=== PATIENT | female | born 1955 | race Caucasian/White ===

== ENCOUNTER 2020-01-27 18:59 | Inpatient (IN) | payer MEDICAID ==
[~2020-01-27] VITALS: Ht 160 cm; Wt 74.4 kg
[2020-01-27] MEDS ORDERED: ONDANSETRON 2MG/ML, 2ML ONE (19:49)
[2020-01-27] MEDS ORDERED: MORPHINE SULFATE 4 MG/ML, 1ML ONE (19:49)
--- NOTE | 2020-01-27 19:55 | NUR ---
THIS IS A 64 YO F W/ C/O RT PAIN BEHIND THE KNEE AND SOB THAT STARTED TODAY. PT DENIES CP/DIZZINESS/N/V. PT RESP EVEN AND UNLABORED. TACHYCARDIC. OTHER VS WDL. NADN. PT RESTING ON [employer]ix[place]NEY W/ CALL LIGHT IN REACH. CONNECTED TO ALL MONITORING. PIV STARTED AND PT MEDICATED PER EMAR. WILL CONTINUE TO MONITOR.
--- NOTE | 2020-01-27 19:58 | NUR ---
PT DESAT TO 85% AFTER [employer]. PLACED ON 4L NC. NOW 93%.
[2020-01-27 20:00] LABS: MEAN CORPUSCULAR HEMOGLOBIN 31.1 pg (27.0-34.8); MEAN CORPUSCULAR HGB CONC 33.9 g/dL (32.4-35.8); MEAN CORPUSCULAR VOLUME 91.6 fL (80-100); MEAN PLATELET VOLUME 9.5 fL (7.4-10.4); PLATELET COUNT 219 x10^3/uL (130-400); RED BLOOD COUNT 5.13 x10^6/uL (3.82-5.3)
[2020-01-27] MEDS ORDERED: MORPHINE SULFATE 4 MG/ML, 1ML IVPush PRN (20:00)
[2020-01-27] MEDS ORDERED: ONDANSETRON 2MG/ML, 2ML IVPush ONE (20:00)
[2020-01-27] MEDS ORDERED: SODIUM CHLORIDE FLUSH 10ML SYR IVF ONE (20:00)
[2020-01-27 20:09] LABS: ALANINE AMINOTRANSFERASE 20 U/L (12-78); ALBUMIN 3.8 g/dL (3.4-5.0); ANION GAP 8 mmol/L (5-15); CALCIUM 9.5 mg/dL (8.5-10.1); CHLORIDE 106 mmol/L (98-107); CREATININE 0.78 mg/dL (0.55-1.02)
[2020-01-27 20:13] LABS: ALKALINE PHOSPHATASE 95 U/L (45-117); BILIRUBIN,TOTAL 0.7 mg/dL (0.2-1.0); TOTAL PROTEIN 7.7 g/dL (6.4-8.2); TROPONIN I < 0.015 ng/mL (0.000-0.045)
[2020-01-27 20:16] LABS: BASOPHILS # (AUTO) 0.02 x10^3/uL (0-0.1); BASOPHILS % (AUTO) 0 % (0-1); EOSINOPHILS # (AUTO) 0.15 x10^3/uL (0-0.4); EOSINOPHILS % (AUTO) 1 % (1-7); LYMPHOCYTES # (AUTO) 1.42 x10^3/uL (1-3.4); LYMPHOCYTES % (AUTO) 8 % (22-44); MD SCAN; MONOCYTES # (AUTO) 1.01 x10^3/uL (0.2-0.8); MONOCYTES % (AUTO) 5 % (2-9); NEUTROPHILS # (AUTO) 16.41 x10^3/uL (1.8-6.8); NEUTROPHILS % (AUTO) 86 % (42-75)
--- NOTE | 2020-01-27 20:26 | NUR ---
US IN ROOM.
--- NOTE | 2020-01-27 20:41 | NUR ---
PT TO CT.
[2020-01-27] MEDS ORDERED: OMNIPAQUE 350 MG/ML, 100ML BOTTLE ONE (21:01)
--- NOTE | 2020-01-27 21:05 | NUR ---
PT AMBULATED TO THE BR W/ A STEADY GAIT.
[2020-01-27] MEDS ORDERED: CEFTRIAXONE PMX 1GM/50ML 50 ML IVPB ONE (21:30)
[2020-01-27] MEDS ORDERED: DOXYCYCLINE 100 MG in DEXTROSE 5% 250 ML IV ONE (21:30)
[2020-01-27] MEDS ORDERED: SODIUM CHLORIDE 0.9% 1,000ML IVBOLUS ONE (21:30)
[2020-01-27 21:34] LABS: CULTURE INDICATED? YES; MICROSCOPIC INDICATED
--- NOTE | 2020-01-27 21:42 | NUR ---
IN ROOM TO UPDATE PT ON POC FOR ADMIT.
[2020-01-27] MEDS ORDERED: CEFTRIAXONE PMX 1GM/50ML 50 ML ONE (22:13)
[2020-01-27] MEDS ORDERED: HEPARIN 25,000 UNITS/250ML PMX 250 ML ONE (22:13)
[2020-01-27] MEDS ORDERED: HEPARIN 5,000 UNITS/ML, 1ML ONE (22:13)
[2020-01-27] MEDS: HEPARIN 5,000 UNITS/ML, 1ML IV ONE ×2 (22:16→22:31)
[2020-01-27] MEDS: HEPARIN 25,000 UNITS/250ML PMX 250 ML IV PRN ×2 (22:17→22:31)
[2020-01-27] MEDS: SODIUM CHLORIDE 0.9% 1,000 ML IV SCH ×2 (22:19→22:35)
[2020-01-27] MEDS ORDERED: ONDANSETRON 2MG/ML, 2ML IVPush PRN (22:30)
[2020-01-27] MEDS: NICOTINE 21 MG/24 HR PATCH.TD24 TD SCH (22:30)
[2020-01-27] MEDS ORDERED: LABETALOL 5MG/ML, 20ML IVPush PRN (22:30)
[2020-01-27] MEDS: CEFTRIAXONE PMX 1GM/50ML 50 ML IV SCH (22:30)
[2020-01-27] MEDS ORDERED: ZOLPIDEM 5MG TABLET PO PRN (22:30)
[2020-01-27] MEDS ORDERED: hydrALAzine 20 MG/ML, 1ML IVPush PRN (22:30)
[2020-01-27] MEDS ORDERED: GUAIFENESIN/COD200MG-20MG/10ML LIQUID PO PRN (22:30)
--- NOTE | 2020-01-27 22:30 | NUR ---
2ND PIV STARTED, CULTURES DRAWN, ABX STARTED, HEPARIN STARTED.
--- NOTE | 2020-01-27 22:49 | NUR ---
REPORT GIVEN TO MICHOACANO ESCAMILLA. PT IS READY FOR TRANSPORT.
[2020-01-27 23:17] LABS: FREE T4 (FREE THYROXINE) 0.97 ng/dL (0.76-1.46); TROPONIN I < 0.015 ng/mL (0.000-0.045)
[2020-01-27 23:20] VITALS: BP 132/82
[2020-01-27] MEDS: morphine SULFATE 10 MG/ML, 1ML IVPush PRN (23:57)
[2020-01-28 00:01] VITALS: BP 134/83
[2020-01-28 01:09] VITALS: BP 123/80
[2020-01-28] MEDS: morphine SULFATE 10 MG/ML, 1ML IVPush PRN ×4 (03:46→22:08)
[2020-01-28 05:12] LABS: MEAN CORPUSCULAR HEMOGLOBIN 31.5 pg (27.0-34.8); MEAN CORPUSCULAR HGB CONC 33.8 g/dL (32.4-35.8); MEAN CORPUSCULAR VOLUME 93.2 fL (80-100); PLATELET COUNT 186 x10^3/uL (130-400); RED BLOOD COUNT 4.58 x10^6/uL (3.82-5.3); RED CELL DISTRIBUTION WIDTH 13.7 % (9.6-15.2)
[2020-01-28 05:24] LABS: ANION GAP 8 mmol/L (5-15); CALCIUM 8.4 mg/dL (8.5-10.1); CHLORIDE 106 mmol/L (98-107)
[2020-01-28 05:31] LABS: CREATININE 0.69 mg/dL (0.55-1.02); TROPONIN I < 0.015 ng/mL (0.000-0.045)
[2020-01-28] MEDS: HEPARIN 5,000 UNITS/ML, 1ML IV PRN ×3 (05:43→20:04)
[2020-01-28 06:30] LABS: BASOPHILS # (AUTO) 0.05 x10^3/uL (0-0.1); BASOPHILS % (AUTO) 0 % (0-1); EOSINOPHILS # (AUTO) 0.01 x10^3/uL (0-0.4); EOSINOPHILS % (AUTO) 0 % (1-7); LYMPHOCYTES # (AUTO) 1.97 x10^3/uL (1-3.4); LYMPHOCYTES % (AUTO) 9 % (22-44); MD SCAN; MONOCYTES # (AUTO) 1.55 x10^3/uL (0.2-0.8); MONOCYTES % (AUTO) 7 % (2-9); NEUTROPHILS # (AUTO) 17.38 x10^3/uL (1.8-6.8); NEUTROPHILS % (AUTO) 83 % (42-75)
[2020-01-28] MEDS: SODIUM CHLORIDE 0.9% 1,000 ML IV SCH ×3 (06:36→22:19)
[2020-01-28 07:00] VITALS: BP 116/75
[2020-01-28] MEDS ORDERED: PANTOPRAZOLE 40 MG IV IVPush SCH (07:30)
[2020-01-28] MEDS: DOXYCYCLINE 100MG TABLET PO SCH ×2 (08:56→20:04)
[2020-01-28] MEDS: CEFTRIAXONE PMX 1GM/50ML 50 ML IV SCH ×2 (12:40→22:08)
[2020-01-28 14:30] VITALS: BP 122/81
[2020-01-28 20:02] VITALS: BP 114/72
[2020-01-28] MEDS: NICOTINE 21 MG/24 HR PATCH.TD24 TD SCH (22:08)
[2020-01-29] MEDS: HEPARIN 25,000 UNITS/250ML PMX 250 ML IV PRN (01:15)
[2020-01-29 01:21] VITALS: BP 111/67
[2020-01-29 02:03] LABS: MEAN CORPUSCULAR HEMOGLOBIN 31.1 pg (27.0-34.8); MEAN CORPUSCULAR HGB CONC 33.4 g/dL (32.4-35.8); MEAN CORPUSCULAR VOLUME 93.2 fL (80-100); MEAN PLATELET VOLUME 9.2 fL (7.4-10.4); PLATELET COUNT 165 x10^3/uL (130-400); RED BLOOD COUNT 4.05 x10^6/uL (3.82-5.3); RED CELL DISTRIBUTION WIDTH 13.9 % (9.6-15.2)
[2020-01-29 02:13] LABS: ANION GAP 6 mmol/L (5-15); CALCIUM 8.5 mg/dL (8.5-10.1); CHLORIDE 106 mmol/L (98-107); CREATININE 0.52 mg/dL (0.55-1.02)
[2020-01-29 02:17] LABS: BASOPHILS # (AUTO) 0.01 x10^3/uL (0-0.1); BASOPHILS % (AUTO) 0 % (0-1); EOSINOPHILS # (AUTO) 0.02 x10^3/uL (0-0.4); EOSINOPHILS % (AUTO) 0 % (1-7); LYMPHOCYTES # (AUTO) 1.93 x10^3/uL (1-3.4); LYMPHOCYTES % (AUTO) 11 % (22-44); MD SCAN; MONOCYTES # (AUTO) 1.13 x10^3/uL (0.2-0.8); MONOCYTES % (AUTO) 6 % (2-9); NEUTROPHILS % (AUTO) 83 % (42-75)
[2020-01-29] MEDS: HEPARIN 5,000 UNITS/ML, 1ML IV PRN ×2 (02:44→10:51)
[2020-01-29] MEDS: PANTOPRAZOLE 40MG TABLET PO SCH (05:41)
[2020-01-29 06:50] VITALS: BP 116/68
[2020-01-29] MEDS: SODIUM CHLORIDE 0.9% 1,000 ML IV SCH (07:22)
[2020-01-29] MEDS: DOXYCYCLINE 100MG TABLET PO SCH ×2 (09:24→20:31)
[2020-01-29] MEDS: CEFTRIAXONE PMX 1GM/50ML 50 ML IV SCH ×2 (10:36→22:37)
[2020-01-29 13:29] VITALS: BP 112/67
[2020-01-29] MEDS ORDERED: HEPARIN 5,000 UNITS/ML, 1ML IV PRN (16:00)
[2020-01-29] MEDS ORDERED: HEPARIN 25,000 UNITS/250ML PMX 250 ML IV PRN (16:00)
[2020-01-29 20:09] VITALS: BP 115/74
[2020-01-29] MEDS: APIXABAN 5 MG TABLET PO SCH (20:31)
[2020-01-29] MEDS: NICOTINE 21 MG/24 HR PATCH.TD24 TD SCH (22:03)
[2020-01-30 00:47] VITALS: BP 123/75
[2020-01-30 04:59] LABS: BASOPHILS # (AUTO) 0.08 x10^3/uL (0-0.1); BASOPHILS % (AUTO) 1 % (0-1); EOSINOPHILS # (AUTO) 0.06 x10^3/uL (0-0.4); EOSINOPHILS % (AUTO) 1 % (1-7); LYMPHOCYTES # (AUTO) 1.28 x10^3/uL (1-3.4); LYMPHOCYTES % (AUTO) 12 % (22-44); MD NO; MEAN CORPUSCULAR HEMOGLOBIN 31.3 pg (27.0-34.8); MEAN CORPUSCULAR HGB CONC 33.9 g/dL (32.4-35.8); MEAN CORPUSCULAR VOLUME 92.1 fL (80-100); MEAN PLATELET VOLUME 9.1 fL (7.4-10.4); MONOCYTES # (AUTO) 0.65 x10^3/uL (0.2-0.8); MONOCYTES % (AUTO) 6 % (2-9); NEUTROPHILS # (AUTO) 8.24 x10^3/uL (1.8-6.8); NEUTROPHILS % (AUTO) 80 % (42-75); PLATELET COUNT 187 x10^3/uL (130-400); RED CELL DISTRIBUTION WIDTH 13.8 % (9.6-15.2)
[2020-01-30 05:08] LABS: CALCIUM 8.8 mg/dL (8.5-10.1); CHLORIDE 107 mmol/L (98-107)
[2020-01-30 05:12] LABS: ANION GAP 8 mmol/L (5-15); CREATININE 0.35 mg/dL (0.55-1.02)
[2020-01-30] MEDS: PANTOPRAZOLE 40MG TABLET PO SCH (05:54)
[2020-01-30 07:38] VITALS: BP 134/84
[2020-01-30] MEDS: DOXYCYCLINE 100MG TABLET PO SCH ×2 (08:39→20:53)
[2020-01-30] MEDS: APIXABAN 5 MG TABLET PO SCH ×2 (08:39→20:51)
[2020-01-30] MEDS: CEFTRIAXONE PMX 1GM/50ML 50 ML IV SCH ×2 (10:39→22:16)
[2020-01-30 13:28] VITALS: BP 124/79
[2020-01-30 20:19] VITALS: BP 109/73
[2020-01-30] MEDS: NICOTINE 21 MG/24 HR PATCH.TD24 TD SCH (22:16)
[2020-01-31 01:20] VITALS: BP 112/74
[2020-01-31] MEDS: PANTOPRAZOLE 40MG TABLET PO SCH (05:01)
[2020-01-31 06:02] LABS: BASOPHILS # (AUTO) 0.03 x10^3/uL (0-0.1); BASOPHILS % (AUTO) 0 % (0-1); EOSINOPHILS # (AUTO) 0.17 x10^3/uL (0-0.4); EOSINOPHILS % (AUTO) 2 % (1-7); LYMPHOCYTES # (AUTO) 1.37 x10^3/uL (1-3.4); LYMPHOCYTES % (AUTO) 16 % (22-44); MD NO; MEAN CORPUSCULAR HEMOGLOBIN 31.1 pg (27.0-34.8); MEAN CORPUSCULAR VOLUME 91.5 fL (80-100); MEAN PLATELET VOLUME 8.5 fL (7.4-10.4); MONOCYTES # (AUTO) 0.65 x10^3/uL (0.2-0.8); MONOCYTES % (AUTO) 7 % (2-9); NEUTROPHILS # (AUTO) 6.64 x10^3/uL (1.8-6.8); NEUTROPHILS % (AUTO) 75 % (42-75); PLATELET COUNT 240 x10^3/uL (130-400); RED BLOOD COUNT 4.06 x10^6/uL (3.82-5.3); RED CELL DISTRIBUTION WIDTH 13.5 % (9.6-15.2)
[2020-01-31 06:12] LABS: ANION GAP 6 mmol/L (5-15); CALCIUM 8.9 mg/dL (8.5-10.1); CHLORIDE 106 mmol/L (98-107); CREATININE 0.52 mg/dL (0.55-1.02)
[2020-01-31 07:05] VITALS: BP 112/75
[2020-01-31] MEDS: APIXABAN 5 MG TABLET PO SCH (08:16)
[2020-01-31] MEDS: DOXYCYCLINE 100MG TABLET PO SCH (08:16)
[2020-01-31] MEDS: CEFTRIAXONE PMX 1GM/50ML 50 ML IV SCH (10:48)
[2020-01-31 13:01] VITALS: BP 110/75
[2020-01-31] MEDS ORDERED: CEFD300C37 PO (13:37)
[2020-01-31] MEDS ORDERED: APIX5TAB PO (13:37)
== END 2020-01-31 15:00 | disposition home or self-care (01) | DRG 299 ==
LOC: ED 22:16 → EDIP 22:21 → 5SO 23:07
PROVIDERS: ADMIT Hospitalist; ATTEND Hospitalist
DX: I82.431 Acute embolism and thrombosis of right popliteal vein (principal); I26.99 Other pulmonary embolism without acute cor pulmonale; J18.9 Pneumonia, unspecified organism; E87.1 Hypo-osmolality and hyponatremia; N39.0 Urinary tract infection, site not specified; F10.10 Alcohol abuse, uncomplicated; Y90.9 Presence of alcohol in blood, level not specified; F17.210 Nicotine dependence, cigarettes, uncomplicated; I11.9 Hypertensive heart disease without heart failure; J43.9 Emphysema, unspecified; K44.9 Diaphragmatic hernia without obstruction or gangrene; Z83.2 Family history of diseases of the blood and blood-forming organs and certain disorders involving the immune mechanism; Z90.710 Acquired absence of both cervix and uterus; I82.451 Acute embolism and thrombosis of right peroneal vein; I82.441 Acute embolism and thrombosis of right tibial vein
CPT/HCPCS: 36415; 71045; 71275; 80048; 80053; 81001; 83036; 83605; 83880; 84145; 84439; 84443; 84484; 85025; 85520; 87040; 87086; 93005; 93306; 96365; 96375; G0378; J0696; J1644; J2405; J7060; Q9967; C9113; J2270; J7030

== ENCOUNTER → 2021-05-22 | Outpatient (CLI) | payer MEDICAID ==
[~2021-05-22] MED LIST: APIX5TAB PO; CEFD300C37 PO
== END | disposition home or self-care (01) ==
LOC: CFH 13:34
PROVIDERS: ATTEND Internal Medicine Cardiovascular Disease
DX: I08.8 Other rheumatic multiple valve diseases (principal); J44.9 Chronic obstructive pulmonary disease, unspecified; I82.890 Acute embolism and thrombosis of other specified veins
CPT/HCPCS: 93306